=== PATIENT | female | born 2000 | race Caucasian/White ===

== ENCOUNTER 2018-04-29 15:06 | Emergency (ER) | payer SELFPAY ==
[~2018-04-29] VITALS: Ht 160 cm; Wt 88.5 kg
[2018-04-29 15:10] VITALS: BP 128/87
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
--- NOTE | 2018-04-29 15:30 | NUR ---
[facility]- ANXIETY, ASTHMA NO ALLERGIES
--- NOTE | 2018-04-29 15:41 | NUR ---
RADIOLOGY AT BEDSIDE
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
--- NOTE | 2018-04-29 18:09 | NUR ---
Patient appears to be resting comfortably in bed. Vital Signs within normal limits. Respirations even and unlabored.
--- NOTE | 2018-04-29 18:26 | NUR ---
dr. case evaluating pt at bedside at this time
[2018-04-29 18:55] VITALS: BP 126/87
== END 2018-04-29 18:55 | disposition home or self-care (01) ==
LOC: MED 15:06
DX: S63.602A Unspecified sprain of left thumb, initial encounter (principal); S60.414A Abrasion of right ring finger, initial encounter; J45.909 Unspecified asthma, uncomplicated; F41.9 Anxiety disorder, unspecified; Y04.0XXA Assault by unarmed brawl or fight, initial encounter; Y93.89 Activity, other specified; Y92.89 Other specified places as the place of occurrence of the external cause; Y99.8 Other external cause status
CPT/HCPCS: 73130; 99283; Q0092